=== PATIENT | female | born 1960 | race Caucasian/White ===

== ENCOUNTER 2019-09-20 12:55 | Inpatient (IN) | payer MEDICARE, OTHER, SELFPAY ==
[2019-09-19 11:37] VITALS: BMI 37.2
[2019-09-20] VITALS (17 sets, daily range): BP systolic 135–167; BP diastolic 57–94; PULSE 71–91; RESP 16–23; TEMP 36.2–37.2; O2SAT 87–98; BMI 36.8
--- NOTE | 2019-09-20 | DI.RAD.S_ITS ---
PROCEDURE: XR CERVICAL SPINE 2V OR 3V INDICATIONS: C 56, C67 ANTERIOR DISCECTOMY TECHNIQUE: 2 view(s) of the cervical spine were acquired. COMPARISON: None. FINDINGS: Bones: Immediate postoperative imaging shows completion of the intervertebral discectomy and placement of articulated disc prosthesis devices at C5-6 and C6-7. Soft tissues: No prevertebral soft tissue swelling. IMPRESSION: Normal alignment established at the C5-6 and C6-7 disc levels utilizing articulated intervertebral disc prosthesis devices at these 2 levels. Dictated by: Jonny Carlos M.D. on 09/20/2019 at 17:17 Approved by: Jonny Carlos M.D. on 09/20/2019 at 17:18
--- NOTE | 2019-09-20 13:58 | PM.PREOP ---
Pre-operative Note Interval Note History & Physical reviewed/Exam performed by Physician: Yes Changes to H&P: No
[2019-09-20] MEDS: LACTATED RINGERS 1,000 ML 42 ML IV ×2 (14:00→16:14)
[2019-09-20] MEDS: CLINDAMYCIN 900 MG/50 ML PIGGYBACK 50 MG IV ×2 (14:55→23:19)
--- NOTE | 2019-09-20 15:19 | SUR.OPER ---
Supine, head on gel donut. Arms padded with gel pads, tucked at sides, towel roll under shoulders. Safety belt at thigh. Legs uncrossed.
[2019-09-20] MEDS: SODIUM CHLORIDE 0.9% 1,000 ML, GENTAMICIN 80 MG IRR (15:27)
[2019-09-20] MEDS: BUPIVACAINE 0.25% W/ EPI 30 ML VIAL INJ (15:27)
[2019-09-20] MEDS: THROMBIN (RECOMBINANT) 5,000 UNIT VIAL 5000 UNIT TOP (15:28)
--- NOTE | 2019-09-20 16:37 | P.OP_ITS ---
Operative Date/Time/Diagnoses Date of procedure: 09/20/19 Time of procedure: 16:37 Pre-op diagnosis: Cervical disc herniation with myelopathy Post-op diagnosis: same Procedure & Clinicians Procedure: C5-6, C6-7 anterior cervical diskectomy and artificial disc replacement Use of microscope Same procedure as scheduled: Yes Indications: [age] year old female with progressive myelopathy from cervical disc herniations. They had failed conservative management and requested operative intervention. Risks and benefits of surgery were discussed and appropriate consents were obtained. Surgeon: Dima Aaron Suspension Cord Tier: Rosey Clark Anesthesia Type: General Operative Notes Findings: None Closure Type: primary Specimen(s): none sent Prosthetic devices, grafts, tissues, transplants, or devices: Se Mobi-C Estimated Blood Loss (mL): 5 Procedure in detail: Patient was brought to the operating room and intubated on the table. A time-out was performed. Preoperative antibiotics were given. The neck was prepped and draped in the standard sterile fashion. Using a skin fold, we made a 3 cm oblique incision on the left side. We used Bovie to go through the platysma and then did a standard anterolateral blunt dissection down to the precervical fascia. Fascia was nicked and elevated up. A marker was placed and x-ray was taken for localization. We then subperiosteally elevated up the longus colli muscles. Self-retaining retractors were placed. Gifford pins were placed under x-ray guidance to be parallel to the endplates. We then brought in the microscope. A scalpel used to perform an annulotomy. We then used a combination of pituitaries and curettes and Kerrison to perform a complete anterior diskectomy at C6-7. We took down the PLL and used Kerrison to remove the posterior disc material and osteophytes. At the end we could from the nerve hook cephalad caudally and out the foramen and everything was opened. We distracted open with the parallel director industrial relations. We then used the horseshoes for sizing. We then used the trials. We then inserted a 15 x 17 x 5 mm size Mobi-C artificial disc replacement under fluoroscopic guidance for positioning. The traction was released and x-ray was checked again. We then moved the retractors up to C5-6. We performed a complete diskectomy at this level with scalpel, pituitaries, curettes, and Kerrisons. We took down the PLL. She had an extremely large midline disc herniation corresponding with her MRI. We removed the central portion but there was a large amount running up behind the vertebral bodies. A long nerve hook was used to fish this out and hook it down to the level of the disc and removed the remaining fragments until we could move the nerve hook cephalad caudally and out the foramen everything was wide open at this point. We trialed and placed another 15 x 15 x 5 mm Mobi- C artificial disc replacement using fluoroscopy. Traction was released. The self-retaining retractors and Gifford pins were removed and final x-rays taken. The wound was irrigated. There was no bleeding. The carotid was beating nicely. The platysma was closed. The superficial was closed. The skin was closed. A sterile dressing was placed. They were then extubated and brought to recovery room with no complications. Complications: none Post-operative Condition: stable Disposition: PACU Plan for aftercare: Inpatient. Plan for overnight admission. Soft collar for comfort.
[2019-09-20] MEDS: ONDANSETRON 4 MG/2 ML INJ IV (17:12)
[2019-09-20] MEDS: HYDROMORPHONE 2 MG INJ IV (17:21)
--- NOTE | 2019-09-20 17:22 | SUR.PHASEI ---
Report called to
--- NOTE | 2019-09-20 17:27 | SUR.PHASEI ---
Report given to
[2019-09-20] MEDS: LACTATED RINGERS 1,000 ML 125 ML IV (18:44)
[2019-09-20] MEDS: DEXAMETHASONE 4 MG/ML VIAL IV (18:44)
[2019-09-20] MEDS: BENZOCAINE/MENTHOL 1 LOZ PKT 1 EACH PO (18:45)
[2019-09-20] MEDS: SENNOSIDES 8.6 MG TABLET 17.2 MG PO (20:54)
[2019-09-20] MEDS: DOCUSATE 100 MG CAPSULE PO (20:54)
[2019-09-20] MEDS: raNITIdine 150 MG CAPSULE PO (20:54)
[2019-09-20] MEDS: TACROLIMUS 0.5 MG CAPSULE 1.5 MG PO (20:59)
[2019-09-20] MEDS: GABAPENTIN 300 MG CAPSULE PO (21:01)
--- NOTE | 2019-09-20 21:33 | PC.NURSE ---
Addendum entered by Thais Armijo R.N. 09/20/19 22:40: Med w/percocet as per order for discomfort @ 2200 w/good relief. Original Note: Pt arrived from PACU @ 1810. Alert/oriented. Denies discomfort. Dsg to anterior neck CDI. Lungs clear, SpO2 93% RA Sitting in chaire, SBA in room. IVF infusing via pump as per orders. ' CBG @ HS 231, No coverage ordered. Pt states she takes prednisone and at time it makes her CBG elevated. Call light w/in reach, pt calls appropriately for needs. Continue w/plan of care.
[2019-09-20] MEDS: OXYCODONE/ACETAMINOPHEN 5/325 TABLET 1 TAB PO (22:14)
[2019-09-21] MEDS: LACTATED RINGERS 1,000 ML 125 ML IV (04:05)
[2019-09-21] MEDS: OXYCODONE/ACETAMINOPHEN 5/325 TABLET 1 TAB PO ×2 (04:06→12:20)
[2019-09-21 04:16] VITALS: BP 116/67; PULSE 63; RESP 18; TEMP 36.2; O2SAT 94
[2019-09-21] MEDS: CLINDAMYCIN 900 MG/50 ML PIGGYBACK 50 MG IV (06:34)
[2019-09-21 08:00] VITALS: BP 141/62; PULSE 67; RESP 16; TEMP 36.5; O2SAT 98
--- NOTE | 2019-09-21 08:02 | PM.PNPO.1 ---
Subjective Subjective Date Patient Seen: 09/21/19 Time Patient Seen: 08:02 Interval history: She is doing very well. Still has some weakness in the right arm. However pain is only about a 3. Exam Vital Signs (past 8 hours): - 09/21/19 04:16 Temperature 97.2 F L Pulse Rate 63 Respiratory Rate 18 Blood Pressure 116/67 Pulse Oximetry 94 Oxygen Delivery Method Room Air,CPAP Oxygen Flow Rate 0 Const Orientation: alert and oriented x3 Back/Spine/Pelvis Other: CDI. 5/5 motor both upper extremities except for 4/5 right deltoid and biceps Assessment & Plan Post-op Postoperative Procedures: Procedures Operation Date: 09/20/19 14:45 Actual Procedures Side Surgeon p C5-6 & C6-7 Anterior Discectomy and Artifical disc replacements Dima Aaron MD she is doing well. Mobilize with physical therapy this morning and then discharge home
[2019-09-21] MEDS: DOCUSATE 100 MG CAPSULE PO (08:35)
[2019-09-21] MEDS: raNITIdine 150 MG CAPSULE PO (08:35)
[2019-09-21] MEDS: predniSONE 5 MG TABLET PO (08:35)
[2019-09-21] MEDS: TACROLIMUS 0.5 MG CAPSULE 1.5 MG PO (08:36)
--- NOTE | 2019-09-21 09:00 | PT.IIE ---
Current Diagnoses Other spondylosis with myelopathy, cervical region (09/20/19) Other cervical disc displacement, unspecified cervical region (09/20/19) Surgery Performed Operation Date: 09/20/19 14:45 Actual Procedures p C5-6 & C6-7 Anterior Discectomy and Artifical disc replacements - Dima Aaron MD Surgical History (Last Updated 09/19/19 @ 11:48 by Mireille Hermosillo, RN) History of kidney transplant (Acute) History of surgery (Acute) Medical History (Last Updated 09/19/19 @ 12:08 by Mireille Hermosillo RN) Anemia (Acute) Cervical myelopathy with cervical radiculopathy (Acute) CVA (cerebral vascular accident) (Acute) Depression (Acute) Diabetes (Acute) DVT of upper extremity (deep vein thrombosis) (Acute) Former smoker (Acute) Heparin induced thrombocytopenia (Acute) Herniated nucleus pulposus, cervical (Acute) History of Clostridium difficile infection (Acute) Neck pain (Acute) EFREM on CPAP (Acute) Shoulder pain (Acute) Spinal stenosis (Acute) Physical Therapy Inpatient Evaluation/Re-Eval M1 PT/OT-IP Prior Functional Status Start: 09/21/19 08:14 Freq: NEEDED Status: Active Protocol: Document 09/21/19 09:00 [facility] (Rec: 09/21/19 09:24 [facility] [id number]) Medical Review Prior Functional Status Medical History Reviewed Yes Diet/Fluid Consistency Regular Communication WNL Mobility and Gait Independent without device, community distances Activities of Daily Living and IADL's difficulty with right arm weakness before surgery, right handed Social History Household Members spouse Living Arrangements House Number of Floors (Floors) Two Floors Number of Stairs To Enter/Railing? basement laundry, rail M2 PT-IP Current Condition Start: 09/21/19 08:14 Freq: NEEDED Status: Active Protocol: Document 09/21/19 09:00 [facility] (Rec: 09/21/19 09:24 [facility] [id number]) Physical Therapy Current Condition Current Condition Evaluation Date 09/21/19 Treatment Diagnosis C5-6 &C6-7 ant discectomy and artificial disc placement, impaired mobility Onset Date 09/20/19 Precautions Cervical Spine Precautions Soft Collar for Comfort Other Precautions edema right UE, s/p fistula surgery right UE about a week ago M3 PT-IP Subjective Start: 09/21/19 08:14 Freq: NEEDED Status: Active Protocol: Document 09/21/19 09:00 [facility] (Rec: 09/21/19 09:24 [facility] [id number]) Subjective Physical Therapy Visit Type Type Initial Evaluation Visit Start Time 08:35 Visit Stop Time 09:00 Total Visit Minutes 25 Number of HOT KNIFE CUTTER Visits 0 Physical Therapy Visit Comments Patient Comments Her right arm is weak, she does not much neck pain at this time Patient Goals be able to return home Therapy Pain Assessment Pain When Pain Assessed After Treatment Pain Present Pain Present Pain Reported Location Neck Intensity 2 Scale Used Numeric (1 - 10) Description Aching Pain Management Techniques Apply Cold M4 PT-IP Mobility and Gait Start: 09/21/19 08:14 Freq: NEEDED Status: Active Protocol: Document 09/21/19 09:00 [facility] (Rec: 09/21/19 09:24 [facility] [id number]) PT-Bed Mobility Assessment Rolling Type of Rolling Roll to Right Level of Assist Independent Supine to Sit Supine to Sit Independent Sit to Supine Sit to Supine Independent Scooting Scooting to Edge of Bed Independent PT-Transfer Assessment Sit to and From Stand Sit to and from Stand Independent Equipment Transfer Assistive Device None Transfers Transfer Destination Bed,Chair Transfer Technique Stand Step Pivot Transfer Ability Level of Assist Independent Gait Assessment Gait Gait Assistance Required: Independent Distance (Feet) 300 Assistive Devices Assistive Device None Gait Deviations General Gait Pattern Within Normal Limits Factors Limiting Gait Function Factors Limiting Gait Function Limited Range of Motion Comments Gait Comments educated her on precautions while cervical area is restricted in ROM Stair Climbing Assessment Evaluation Level of Assist On Stairs Independent Technique/Endurance Stair Climbing Direction Ascend and Descend Stair Climbing Technique Step Over Step,Step to Step Number of Steps Climbed 3 Query Text: Stair Climbing Set # Repetitions (reps) 1 Comments Stair Climbing Comments she uses [id number] going up and step to coming down PT-Balance Assessment Sitting Balance and Reactions Static Sitting Balance Ability Normal Dynamic Sitting Balance Ability Normal Standing Balance and Reactions Static Standing Balance Ability Good Dynamic Standing Balance Ability Good M5 PT-IP Objective Assessments Start: 09/21/19 08:14 Freq: NEEDED Status: Active Protocol: Document 09/21/19 09:00 [facility] (Rec: 09/21/19 09:24 [facility] [id number]) Orientation Orientation/Cognition Level of Alertness Alert Orientation Name,Age,Birthday,Month,Date, Year,Day of Week,Place, Situation Language Function Ability No Deficits Noted Safety Awareness Understands Safety Issues Memory Description No Deficits Noted Gross Range of Motion Upper Extremity ROM Assessment Within Functional Limits Lower Extremity ROM Assessment Within Functional Limits Strength Upper Extremity Strength Assessment Right Impaired Shoulder elevation 2+/5 Elbow flexion 3+/5, ext 4/5 Wrist compensatory wrist flexion observed with functional gripping with right smith Hand fair Lower Extremity Strength Assessment Within Functional Limits Comments Strength Comments cervical AROM is limited post- op with stiffness, pt moving head in small motions for functional looking, she has soft cervical collar but is not wearing it at this time per her preference Coordination Assessment Gross Coordination Gross Coordination WNL Sensation Assessment Comments Sensation Comments edema in right UE throughout that is pitting, no numbness/ tingling reported since surgery M6 PT-IP Treatment Start: 09/21/19 08:14 Freq: NEEDED Status: Active Protocol: Document 09/21/19 09:00 [facility] (Rec: 09/21/19 09:24 [facility] [id number]) Physical Therapy Treatment Exercises Exercises Elbow Flexion/Extension,Wrist ROM,Hand ROM Education Education Provided Safety Other Treatments Other Treatment Performed post-op education to avoid falls and protect cervical spine while healing M7 PT-IP Assessment and Plan Start: 09/21/19 08:14 Freq: NEEDED Status: Active Protocol: Document 09/21/19 09:00 [facility] (Rec: 09/21/19 09:24 [facility] [id number]) PT Summary Assessment and Plan Potential Rehabilitation Potential Good Status of Condition at Evaluation Evolving Summary Impairments Pain,ROM,Strength,Activity Tolerance Progress Towards Goals Safe For Discharge Assessment Summary Taya is alert and tolerating activity well. She ambulated in the arreola with good tolerance. No assistive device needed at this time. Post-op education provided. She appears safe to discharge home when medically cleared. No further skilled physical therapy needs identified at this time. Frequency of Treatment Frequency Of Treatment Discharge Treatment Plan Other Recommendations and Next Treatment completed post-op training Focus this visit Recommendations To Nursing Amount of Assist Needed Standby Assistance Discharge Recommendations PT Discharge Recommendations Home with Assistance Other Discharge Recommendations is available evenings, Sister plans to come over to help as needed Transportation Needs at Discharge Private Vehicle
[2019-09-21] MEDS: MYCOPHENOLATE SODIUM 360 MG 360 EACH PO (09:14)
--- NOTE | 2019-09-21 10:15 | PC.NURSE ---
Patient is awake and denies pain. She has a dressing that is cdi to her anterior neck with soft collar in place. No numbness or tingling. She is going home today.
--- NOTE | 2019-09-21 10:55 | OT.IP.EVAL ---
Current Diagnoses Other spondylosis with myelopathy, cervical region (09/20/19) Other cervical disc displacement, unspecified cervical region (09/20/19) Surgery Performed Operation Date: 09/20/19 14:45 Actual Procedures p C5-6 & C6-7 Anterior Discectomy and Artifical disc replacements - Dima Aaron MD Past Medical History (Last Updated 09/19/19 @ 12:08 by Mireille Hermosillo RN) Anemia (Acute) Cervical myelopathy with cervical radiculopathy (Acute) CVA (cerebral vascular accident) (Acute) Depression (Acute) Diabetes (Acute) DVT of upper extremity (deep vein thrombosis) (Acute) Former smoker (Acute) Heparin induced thrombocytopenia (Acute) Herniated nucleus pulposus, cervical (Acute) History of Clostridium difficile infection (Acute) Neck pain (Acute) EFREM on CPAP (Acute) Shoulder pain (Acute) Spinal stenosis (Acute) Surgical History (Last Updated 09/19/19 @ 11:48 by Mireille Hermosillo RN) History of kidney transplant (Acute) History of surgery (Acute) Occupational Therapy Inpatient Evaluation/Re-Eval M1 PT/OT-IP Prior Functional Status Start: 09/21/19 15:01 Freq: NEEDED Status: Active Protocol: Document 09/21/19 10:05 [facility] (Rec: 09/21/19 15:26 [facility] [id number]) Medical Review Prior Functional Status Medical History Reviewed Yes Diet/Fluid Consistency Regular Communication WNL Mobility and Gait Independent without device, community distances Activities of Daily Living and IADL's Pt states she was independent with all self care except for pulling on socks due to R arm weakness. Pt has been doing cleaning, laundry and both do meal preparation. Prior Functional Level (Other details) works days but can assist PRN before and after work. Pt's sister can also assist PRN. Social History Household Members spouse Living Arrangements House Number of Floors (Floors) Two Floors Number of Stairs To Enter/Railing? 2 stairs to enter without rail and full flight of stairs wiht rail to lower level laundry and TV room Home Environment Standard Height Toilet,Tub/ Shower Home Equipment Hand Held Shower Employment Status Unemployed M2 OT-IP Current Condition Start: 09/21/19 15:01 Freq: Status: Active Protocol: Document 09/21/19 10:05 [facility] (Rec: 09/21/19 15:26 [facility] [id number]) Occupational Therapy Current Condition Current Condition Evaluation Date 09/21/19 Treatment Diagnosis self care s/p C5-6, C6- 7 anterior diskectomy w/ artificial discs Diagnosis Onset Date 09/20/19 Post Operative Precautions Cervical Spine Precautions Soft Collar for Comfort,No Heavy Lifting,Log Roll M3 OT- IP Subjective and Pain Start: 09/21/19 15:01 Freq: Status: Active Protocol: Document 09/21/19 10:05 [facility] (Rec: 09/21/19 15:26 [facility]J [id number]) OT- Subjective Occupational Therapy Visit Type Type Initial Evaluation Visit Start Time 09:10 Visit Stop Time 10:05 Total Visit Minutes 55 Occupational Therapy Visit Comments Patient Comments My R arm and hand are weak and I can't lift things. Patient/Caregiver Goals to go home later today OT Pain Assessment Pain When Pain Assessed After Treatment Pain Present Pain Present Pain Reported Location Neck Intensity 2 Scale Used Numeric (1 - 10) Description Aching M4 OT- IP ADL's Start: 09/21/19 15:01 Freq: Status: Active Protocol: Document 09/21/19 10:05 [facility] (Rec: 09/21/19 15:26 PJ [id number]) OT [id number] General Evaluation Self-Feeding Ability Independent Comments OT Self-Feeding Comments Pt educated re: softer foods; she prefers cold foods at present OT ADL-Grooming General Evaluation Grooming Ability Independent Comments OT Grooming Comments standing at sink after education re: body mechanics OT ADL-Oral Care General Eval Oral Care Ability Independent Areas of Assistance Brushing Teeth Devices Oral Care Devices Toothbrush Comments Oral Care Comments standing at sink after education re: body mechanics OT ADL-Dressing General Eval Upper Body Dressing Ability Independent Lower Body Dressing Ability Independent Comments OT Dressing Comments after education re: body mechanics OT ADL-Toileting General Evaluation Toileting Ability Independent OT ADL-Bathing Devices Bathing Equipment Hand Held Shower Sprayer Comments OT Bathing Comments pt declines to shower here; provided education re: body mechanics and methods to keep incision dry M5 OT- IP IADL's Start: 09/21/19 15:01 Freq: Status: Active Protocol: Document 09/21/19 10:05 [facility] (Rec: 09/21/19 15:26 PJ [id number]) OT-Instrumental Activities of Daily Living Deficits IADL Deficits Identified Deficits Home Safety Awareness Awareness of Need for Assistance at Home Good Awareness Ability to Problem Solve Emergency Able to Problem Solve Situations Home Safety Comments will assist PRN until pt able Medication Management Medication Management No Deficits Identified Money Management Money Management No Deficits Identified Meal Preparation Meal Preparation Caregiver Provides Assist Orthodontic Assistant Orthodontic Assistant Caregiver Provides Assist Orthodontic Assistant Comments provided education re: methods re: getting laundry out of washer and dryer Driving Driving Caregiver Provides Assist M6 OT- IP Functional Cognition Start: 09/21/19 15:01 Freq: Status: Active Protocol: Document 09/21/19 10:05 [facility] (Rec: 09/21/19 15: PJ [id number]) Cognitive Factors Limiting Selfcare Function Cognitive Ability Level of Alertness Alert Patient Orientation Name,Age,Birthday,Month,Date, Year,Day of Week,Place, Situation Attention Span Ability Capable of Sustained Attention Ability to Follow Commands Able to Follow Multi-Step Commands Memory Description No Deficits Noted Safety Awareness No Deficits Noted Problem Solving Ability No deficits Noted Executive Function Ability No Deficits Noted Cognitive Comments Cognitive Assessment Comments Pt verbalizes and demonstrates understanding of C spine precautions and all education. OT- Vision and Hearing OT- Hearing Assessment OT- Hearing Assessment WFL OT- Vision Assessment Visual Acuity WFL,Glasses All The Time M7 OT- IP Mobility and Balance Start: 09/21/19 15:01 Freq: Status: Active Protocol: Document 09/21/19 10:05 [facility] (Rec: 09/21/19 15:26 PJ [id number]) OT-Transfer Assessment Sit to and From Stand Sit to and from Stand Independent Transfers Transfer Ability Independent Technique Transfer Destination Chair,Toilet Transfer Technique Stand Step Pivot Devices Transfer Assistive Devices None Comments Mobility Comments pt up ad joel in room without a device OT- Gait Assessment Comments Gait Ability Comments Pt has been cleared by P.T. for independent ambulation. OT- Balance Assessment Sitting Balance and Reactions Static Sitting Balance Ability Normal Dynamic Sitting Balance Ability Normal Standing Balance and Reactions Static Standing Balance Ability Normal Dynamic Standing Balance Ability Normal M8 OT- IP Objective Assessments Start: 09/21/19 15:01 Freq: Status: Active Protocol: Document 09/21/19 10:05 [facility] (Rec: 09/21/19 15:26 PJ [id number]) OT Gross Range of Motion Upper Extremity Range of Motion Assessment Within Functional Limits ROM Impairments with in C spine precautions OT Strength Upper Extremity Strength Assessment Right Impaired Shoulder R flex 4/5 , R abd 4/5 per MD notes Elbow flex 4/5 Wrist 3+/5 Hand 4-/5 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 Decreased wrist extensor strength interferes with wrist stability when lifting heavier objects. Provided red theraputty and written strengthening exercises for gross grasp, palmar pinch, finger extension and wrist extension. Pt verbalizes understanding of all education. OT- Coordination Assessment Comments Coordination Comments R dexterity impaired by decreased strength in wrist extensors and fingers. OT-Muscle Tone Assessment Muscle Tone WNL Yes OT Sensation Assessment Comments Summary Comments Pt detects lt touch throughout RUE/hand and denies sensory deficits today. Edema Edema Present Edema Comments Pt has moderate RUE pitting edema which has been ongoing since brachial atrey occlusion with balloon angioplasty ~10 days ago. Pt states edema is much improved over last week. M9 OT- IP Assessment and Plan Start: 09/21/19 15:01 Freq: Status: Active Protocol: Document 09/21/19 10:05 [facility]J (Rec: 09/21/19 15:26 [facility] [id number]) OT Summary Assessment and Plan Potential Rehabilitation Potential Good Summary Progress Towards Goals Safe For Discharge,Goals Met Assessment Summary Moderate complexity OT assessment completed due to multiple co morbidities. All OT education completed today with this 59 yr old female admitted for C5-6, C6-7 anterior diskectomies with placement of artificial discs. 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 Pt has vascular port in R antecubital fossa. Pt verbalizes and demonstrates understanding of all education re: C spine precautions and adapted ADL techniques, as well as R strengthening exercises for R (dominant)wrist and fingers. Pt plans to d/c home today with assist from working and sister PRN. Pt may benefit from out pt therapy for RUE/hand strengthening and edema control when MD permits. Discharge Recommendations OT Discharge Recommendations Home with Assistance Transportation Needs at Discharge Private Vehicle
--- NOTE | 2019-09-21 11:21 | CM.DANOTE ---
DCP Assessment: EMR Reviewed: Patient is a pleasant 59 year old female, seen at hospital for cervical disk replacement by Dr. Aaron. PCP is Dr. Gaitan. Patient is alert and oriented x3. Met with patient in room and introduced self and role. Patient was dressed and preparing for discharge. Patient lives in a two story home with her Rolf who patient states will be her caregiver when she returns home. Patient states Rolf does work, but she plans on just sitting in a chair and relaxing during the day while he is away. Patient's home does have one set of stairs down to laundry room, but patient denies any foreseeable complications with these. PT evaluation completed this AM. Patient reports family friends will be bringing dinners for her and her for the next few days. I: Medicare/[employer] Preferred P: DC home with Rolf. SN hSazia Osborn RN Discharge Planning/Care Management CM Discharge Assessment Start: 09/21/19 11:19 Freq: Status: Active Protocol: Document 09/21/19 11:20 HS (Rec: 09/21/19 11:21 [id number]) Discharge Planning Assessment Assigned Wet Plant Operator Shazia Alvarez RN/SN Anurag DPOA/Assigned Designee Name Rolf Valdovinos Advance Directives? No History Provided By Patient,Medical Record Has Patient been admitted in last 30 No days? Prior Living Arrangements House Household Members spouse Type of transporation used prior to Drives own vehicle admit Independent with ADL's Yes Is patient alert and oriented? Yes Caregiver for Another No Barriers to Discharge No Discharge Plan Home Referrals Initiated None needed Whiteboard Updated in Patient Room with Yes name and ext. # of Wet Plant Operator Review Status In Process Next Review Type Continued Stay Review Pre-Anesthesia Assessment Start: 09/19/19 11:37 Freq: Status: Complete Protocol: Document 09/19/19 11:37 CAB (Rec: 09/19/19 12:11 CAB [id number]) Pre-Anesthesia Assessment PAC Comment Message left w/surgeon's office for Eliquis instructions, did not receive call back. Surgeon H&P only source of medical/medication history Patient Information Reviewed Via Chart Review Diagnostic Results BMP/CMP,CBC,EKG Comment Outside labs/EKG scanned to record Primary Care Provider Georges Gaitan Seen Specialist in Last 12 Months Yes Specialist Seen Orthopedist Primary Language Bengali Operations Controller Required No Height 160.02 cm Weight 95.254 kg Body Mass Index (BMI) 37.2 Other Aids No Anesthesia Review Requested No alcohol intake current Alcohol Intake Frequency Other: Occasional Smoking Status Former smoker Pain Present Pain Reported Musculoskeletal Symptoms Joint Pain,Muscle Weakness, Neck Pain,Numbness,Radiating Pain into Limb Patient is completely paralyzed or No completely immobile Mental Status Oriented to own ability Does patient have العلي/SOB No Hx Sleep Apnea Yes: Wears CPAP, compliance unknown Currently Taking a Beta Thalia No Hx Chest Pain No Hx SOB No Anti-Coagulant Therapy Yes: Eliquis-Instructions to hold unknown Hx Pacemaker/ICD No Pacemaker Rep Required? No Urinary Catheter Present No Hx Urinary Self Catheterization No Diabetes Yes Patient No Lactating No Presence of External or Internal Medical Yes: CPAP Devices Marital Status Unknown Patient Discharge Plan Description Return Home
[2019-09-21 12:00] VITALS: BP 106/61; PULSE 59; RESP 16; TEMP 36.8; O2SAT 100
== END 2019-09-21 12:41 | disposition home or self-care (01) | DRG 518 ==
PROVIDERS: Admitting Provider Orthopaedic Surgery; PCP Internal Medicine; Referring Provider Orthopaedic Surgery; Visit Provider Orthopaedic Surgery
PROC: 0RR30JZ Replacement of Cervical Vertebral Disc with Synthetic Substitute, Open Approach (ICD-10-PCS; principal; 2019-09-20 14:45)
DX: M50.222 Other cervical disc displacement at C5-C6 level (principal); M47.12 Other spondylosis with myelopathy, cervical region; Z86.718 Personal history of other venous thrombosis and embolism; G47.33 Obstructive sleep apnea (adult) (pediatric); E11.9 Type 2 diabetes mellitus without complications; F32.9 Major depressive disorder, single episode, unspecified; I10 Essential (primary) hypertension; E66.9 Obesity, unspecified; Z68.36 Body mass index [BMI] 36.0-36.9, adult; Z87.891 Personal history of nicotine dependence
CPT/HCPCS: 72040; 76000; 82962; 97110; 97162; 97166; 97535; C1776; J1100; J1170; J2405; J2704; J3010; J7507